=== PATIENT | female | born 1990 | race Native Hawaiian/Other Pacific Islander ===

== ENCOUNTER → 2017-02-16 | Outpatient (CLI) | payer OTHER ==
--- NOTE | 2017-02-16 09:36 | REP ---
RIGHT UPPER QUADRANT ULTRASOUND: Real-time sonographic evaluation of the right upper quadrant performed. Gallbladder demonstrates no evidence of intraluminal sludge of calculi, wall thickening, or pericholecystic fluid. There is no intrahepatic or extrahepatic biliary diltation, common bile duct measuring 5 mm in diameter. Liver and pancreas demonstrate homogenous echotexture with no gross mass. Right kidney demonstrates no hydronephrosis or nephrolithiasis with normal size at 10.3 cm in length. IMPRESSION: Negative right upper quadrant ultrasound. Signed by Toni Smith MD 02/16/2017 01:45 P
[2017-02-18 08:07] LABS: ALT 25 IU/L (0-40); GGT 10 IU/L (0-60); HAPTOGLOBIN 139 mg/dL (34-200); NECROINFLAM SCORE 0.08 (0.00-0.17); NECROINFLAMM GRADE A0-No activity (.); TOTAL BILIRUBIN 0.3 mg/dL (0.0-1.2)
[2017-02-18 10:14] LABS: HEPATITIS C QUANTITATION HCV Not Detected IU/mL (.)
== END ==
LOC: M LAB 08:24 → M RAD 08:24
PROVIDERS: ATTEND Specialist
DX: B18.1 Chronic viral hepatitis B without delta-agent (principal)

== ENCOUNTER → 2017-05-19 | Outpatient (CLI) | payer OTHER ==
[2017-05-19 12:56] LABS: ALBUMIN/GLOBULIN RATIO 1.05 (1.00-1.93); ALKALINE PHOSPHATASE 55 U/L (45-117); ALT/SGPT 24 U/L (12-78); ANION GAP 8 MEQ/L (8-16); AST/SGOT 21 U/L (7-37); BILIRUBIN,TOTAL 0.4 MG/DL (0.2-1.0); BLOOD UREA NITROGEN 8 MG/DL (7-18); CALCIUM LEVEL 8.9 MG/DL (8.5-10.1); CARBON DIOXIDE LEVEL 29 MEQ/L (21-32); CHLORIDE LEVEL 102 MEQ/L (98-107); CREATININE FOR GFR 0.71 MG/DL (0.55-1.02); GLOMERULAR FILTRATION RATE > 60.0 (>60); GLUCOSE, FASTING 84 MG/DL (70-105); SODIUM LEVEL 139 MEQ/L (136-145); TOTAL PROTEIN 7.8 GM/DL (6.4-8.2)
== END ==
LOC: M LAB 11:20
PROVIDERS: ATTEND Specialist
DX: B18.1 Chronic viral hepatitis B without delta-agent (principal)

== ENCOUNTER → 2017-11-08 | Outpatient (CLI) | payer OTHER ==
[2017-11-08 13:36] LABS: HEMATOCRIT 36.8 % (36.0-47.0); MEAN CORPUSCULAR HEMOGLOBIN 29.9 pg (27.0-33.0); MEAN CORPUSCULAR HGB CONC 32.6 g/dl (32.0-36.5); MEAN CORPUSCULAR VOLUME 91.5 fl (80.0-96.0); PLATELET COUNT, AUTOMATED 336 10^3/uL (150-450); RED BLOOD COUNT 4.02 10^6/uL (4.00-5.40); WHITE BLOOD COUNT 4.9 10^3/uL (4.0-10.0)
[2017-11-08 13:58] LABS: ALBUMIN 3.6 GM/DL (3.2-5.2); ALBUMIN/GLOBULIN RATIO 1.03 (1.00-1.93); ALKALINE PHOSPHATASE 64 U/L (45-117); ALT/SGPT 40 U/L (12-78); ANION GAP 6 MEQ/L (8-16); AST/SGOT 32 U/L (7-37); BILIRUBIN,TOTAL 0.2 MG/DL (0.2-1.0); BLOOD UREA NITROGEN 9 MG/DL (7-18); CALCIUM LEVEL 8.6 MG/DL (8.5-10.1); CARBON DIOXIDE LEVEL 28 MEQ/L (21-32); CHLORIDE LEVEL 106 MEQ/L (98-107); CREATININE FOR GFR 0.75 MG/DL (0.55-1.30); GLOMERULAR FILTRATION RATE > 60.0 (>60); GLUCOSE, FASTING 77 MG/DL (70-100); POTASSIUM SERUM 4.2 MEQ/L (3.5-5.1); SODIUM LEVEL 140 MEQ/L (136-145); TOTAL PROTEIN 7.1 GM/DL (6.4-8.2)
[2017-11-10 00:06] LABS: HEPATITIS BE ANTIBODY Negative (Negative)
[2017-11-10 00:06] LABS: HEPATITIS BE ANTIGEN Positive (Negative)
[2017-11-10 14:16] LABS: HBV 3030 IU/mL (.); log10 HBV IU/mL 3.481 (.)
== END ==
LOC: M LAB 12:29
DX: B18.1 Chronic viral hepatitis B without delta-agent (principal)
CPT/HCPCS: 80053

== ENCOUNTER 2017-12-27 21:28 | Emergency (ER) | payer OTHER ==
[2017-12-27 23:04] LABS: CONTROL LINE UCG INT CTR LINE PRESENT; URINE PREG TEST NEGATIVE (NEGATIVE)
[2017-12-27 23:09] LABS: KETONE, URINE AUTO RFX TRACE mg/dL (NEGATIVE); LEUKOCYTE ESTERASE UR AUTO RFX NEGATIVE (NEGATIVE); MUCUS, URINE RFX LARGE (NEGATIVE); NITRITE, URINE AUTO RFX NEGATIVE (NEGATIVE); RBC, URINE AUTO RFX 12 /HPF (0-3); SPECIFIC GRAVITY UR AUTO RFX 1.031 (1.002-1.035); SQUAM EPITHELIAL CELL UR AURFX 3 /HPF (0-6); WBC, URINE AUTO RFX 3 /HPF (0-3)
[2017-12-27] MEDS: NS 1,000 ML IV (23:15)
[2017-12-27 23:18] LABS: BASO % 0.2 % (0.0-1.0); EOS # 0.1 10^3/uL (0.0-0.50); EOS % 1.3 % (0.0-3.0); HEMATOCRIT 37.6 % (36.0-47.0); HEMOGLOBIN 12.4 g/dl (12.0-15.5); IMMATURE GRANULOCYTE % 0.2 % (0-3.0); LYMPH # 1.2 10^3/uL (1.5-6.5); MONO # 0.7 10^3/uL (0.0-0.8); MONO % 8.2 % (0.0-5.0); NEUTROPHILS # 6.2 10^3/uL (1.8-7.7); NEUTROPHILS % 75.1 % (36.0-66.0); PLATELET COUNT, AUTOMATED 329 10^3/uL (150-450); RED BLOOD COUNT 4.13 10^6/uL (4.00-5.40); RED CELL DISTRIBUTION WIDTH 13.2 % (11.5-14.5); WHITE BLOOD COUNT 8.3 10^3/uL (4.0-10.0)
[2017-12-27 23:35] LABS: CONTROL LINE HCG INT CTR LINE PRESENT; HCG, SERUM QUALITATIVE NEGATIVE (NEGATIVE)
[2017-12-27 23:41] LABS: ALBUMIN 3.5 GM/DL (3.2-5.2); ALKALINE PHOSPHATASE 58 U/L (45-117); ALT/SGPT 23 U/L (12-78); AMYLASE 55 U/L (25-115); ANION GAP 9 MEQ/L (8-16); AST/SGOT 18 U/L (7-37); BILIRUBIN,DIRECT 0.1 MG/DL (0.0-0.2); BILIRUBIN,TOTAL 0.3 MG/DL (0.2-1.0); BLOOD UREA NITROGEN 6 MG/DL (7-18); CALCIUM LEVEL 8.7 MG/DL (8.5-10.1); CARBON DIOXIDE LEVEL 28 MEQ/L (21-32); CHLORIDE LEVEL 105 MEQ/L (98-107); CREATININE FOR GFR 0.74 MG/DL (0.55-1.30); GLOMERULAR FILTRATION RATE > 60.0 (>60); GLUCOSE, FASTING 88 MG/DL (70-100); LIPASE 125 U/L (73-393); POTASSIUM SERUM 3.5 MEQ/L (3.5-5.1); SODIUM LEVEL 142 MEQ/L (136-145); TOTAL PROTEIN 7.4 GM/DL (6.4-8.2)
[2017-12-27] MEDS ORDERED: ISOVUE-370 76% 100ML VIAL (Q9967) As Ordered (23:53)
[2017-12-28] MEDS: ONDANSETRON 4MG/2ML VIAL (J2405) IV
[2017-12-28] MEDS: MORPHINE 2 MG/ML 1ML SYRINGE (J2270) IV
[2017-12-28] MEDS ORDERED: ONDANSETRON 4MG/2ML VIAL (J2405) As Ordered (00:03)
[2017-12-28] MEDS ORDERED: MORPHINE 2 MG/ML 1ML SYRINGE (J2270) As Ordered (00:03)
== END 2017-12-28 00:53 | disposition home or self-care (01) ==
LOC: M ED 21:28
DX: A08.4 Viral intestinal infection, unspecified (principal)
CPT/HCPCS: J2405

== ENCOUNTER → 2018-05-11 | Outpatient (CLI) | payer OTHER ==
[2018-05-11 12:13] LABS: HEMATOCRIT 32.8 % (36.0-47.0); HEMOGLOBIN 11.1 g/dl (12.0-15.5); MEAN CORPUSCULAR HEMOGLOBIN 31.4 pg (27.0-33.0); MEAN CORPUSCULAR HGB CONC 33.8 g/dl (32.0-36.5); MEAN CORPUSCULAR VOLUME 92.7 fl (80.0-96.0); PLATELET COUNT, AUTOMATED 277 10^3/uL (150-450); RED BLOOD COUNT 3.54 10^6/uL (4.00-5.40); RED CELL DISTRIBUTION WIDTH 13.8 % (11.5-14.5); WHITE BLOOD COUNT 7.2 10^3/uL (4.0-10.0)
[2018-05-11 13:48] LABS: ALBUMIN/GLOBULIN RATIO 0.79 (1.00-1.93); ALKALINE PHOSPHATASE 46 U/L (45-117); ALT/SGPT 17 U/L (12-78); ANION GAP 9 MEQ/L (8-16); AST/SGOT 15 U/L (7-37); BILIRUBIN,TOTAL 0.3 MG/DL (0.2-1.0); BLOOD UREA NITROGEN 6 MG/DL (7-18); CALCIUM LEVEL 8.7 MG/DL (8.5-10.1); CARBON DIOXIDE LEVEL 24 MEQ/L (21-32); CHLORIDE LEVEL 106 MEQ/L (98-107); CREATININE FOR GFR 0.52 MG/DL (0.55-1.30); GLOMERULAR FILTRATION RATE > 60.0 (>60); GLUCOSE, FASTING 71 MG/DL (70-100); POTASSIUM SERUM 4.1 MEQ/L (3.5-5.1); SODIUM LEVEL 139 MEQ/L (136-145); TOTAL PROTEIN 6.8 GM/DL (6.4-8.2)
[2018-05-14 00:07] LABS: HBV 1320000 IU/mL (.); log10 HBV IU/mL 6.121 (.)
== END ==
LOC: M LAB 11:44
DX: B18.1 Chronic viral hepatitis B without delta-agent (principal)
CPT/HCPCS: 80053

== ENCOUNTER → 2018-07-06 | Outpatient (CLI) | payer OTHER ==
[~2018-07-06] MED LIST: ZOFR4TAB14 PO
[2018-07-06 11:17] LABS: ALBUMIN 2.9 GM/DL (3.2-5.2); ALT/SGPT 26 U/L (12-78); BILIRUBIN,DIRECT < 0.1 MG/DL (0.0-0.2); BILIRUBIN,TOTAL 0.2 MG/DL (0.2-1.0); TOTAL PROTEIN 6.5 GM/DL (6.4-8.2)
[2018-07-09 00:06] LABS: HBV 16000 IU/mL (.); log10 HBV IU/mL 4.204 (.)
== END ==
LOC: M LAB 10:00
PROVIDERS: ATTEND Specialist
DX: B18.1 Chronic viral hepatitis B without delta-agent (principal)

== ENCOUNTER 2018-07-14 20:23 | Outpatient (CLI) | payer OTHER ==
[~2018-07-14] VITALS: Ht 175.3 cm; Wt 105.8 kg
[2018-07-14 21:33] VITALS: BP 98/62
--- NOTE | 2018-07-14 21:36 | IPNPDOC ---
Text Note Date of Service The patient was seen on 07/14/18. NOTE 27 yo at 29+4 weeks presents to L&D with the complaint of pelvic pressure, especially when walking upstairs or doing strenuous activity. She denies any vaginal bleeding or discharge. She also denies any leakage of fluid or contractions whatsoever. She endorses excellent movement. She has a history of a 35 week delivery but all other pregnancies have resulted in term d eliveries. She is taking weekly 17-OHP. Chaperoned by L&D RN Vitals - VSS, afebrile, normotensive, non tachycardic General - AAOX3, sitting up in bed, NAD Abdomen - gravid uterus. No fundal tenderness. Pelvic - Normal external female genitalia. Speculum inserted into the vagina and the cervix was visualized. No discharge, blood, or fluid in the vault. Cervix normal in appearance and closed. Cervix: cl/thick/high posterior. FHR - BL 140, moderate variability, +10X10 accels, no decels Cat I tracing. Intermittent breaks in tracing while patient moving. Bedside TAUS - Cephalic presenting . ЮЛИЯ 16.8cm. Very active fetus. No signs of labor. Pressure is most exacerbated by movement and exercise; likely pelvic girdle pain. Cervix closed. Reassuring status. Recommended contacting the [facility] to get a maternity support belt in the morning. Patient verbalized understanding. We reviewed strict return precautions. All questions answered. DO DYLAN Romero CHRISTOPHER J. DO Jul 14, 2018 21:36
== END 2018-07-14 21:35 | disposition home or self-care (01) ==
LOC: M LDO 20:23
PROVIDERS: ATTEND Obstetrics & Gynecology
DX: O26.893 Other specified pregnancy related conditions, third trimester (principal); R10.30 Lower abdominal pain, unspecified; Z3A.29 29 weeks gestation of pregnancy
CPT/HCPCS: 76815; G0378; G0463

== ENCOUNTER → 2018-09-03 | Outpatient (CLI) | payer OTHER ==
[2018-09-03 13:48] LABS: ALBUMIN 2.7 GM/DL (3.2-5.2); ALT/SGPT 23 U/L (12-78); BILIRUBIN,TOTAL 0.2 MG/DL (0.2-1.0); BLOOD UREA NITROGEN 7 MG/DL (7-18); CALCIUM LEVEL 8.3 MG/DL (8.5-10.1); CARBON DIOXIDE LEVEL 24 MEQ/L (21-32); CHLORIDE LEVEL 108 MEQ/L (98-107); CREATININE FOR GFR 0.55 MG/DL (0.55-1.30); GLOMERULAR FILTRATION RATE > 60.0 (>60); GLUCOSE, FASTING 78 MG/DL (70-100); POTASSIUM SERUM 3.7 MEQ/L (3.5-5.1); SODIUM LEVEL 140 MEQ/L (136-145); TOTAL PROTEIN 6.2 GM/DL (6.4-8.2)
== END ==
LOC: M LAB 12:34
PROVIDERS: ATTEND Obstetrics & Gynecology
DX: Z11.59 Encounter for screening for other viral diseases (principal)

== ENCOUNTER 2018-09-10 00:16 | Inpatient (IN) | payer OTHER ==
[2018-09-10] VITALS (8 sets, daily range): BP systolic 95–118; BP diastolic 49–65
[~2018-09-10] VITALS: Ht 175.3 cm; Wt 112.4 kg
[2018-09-10] MEDS ORDERED: PENICILLIN G POTASSIUM IV 5 MU in D5W MINI-BAG PLUS 100 ML IV STA ×2 (01:10→01:23)
[2018-09-10] MEDS ORDERED: LACTATED RINGER'S 1000 ML IV STA (01:10)
[2018-09-10] MEDS ORDERED: TENO30TAB PO (01:12)
[2018-09-10] MEDS ORDERED: PRENTAB9 PO (01:12)
[2018-09-10 01:25] LABS: HEMATOCRIT 35.2 % (36.0-47.0); HEMOGLOBIN 11.8 g/dl (12.0-15.5); MEAN CORPUSCULAR HEMOGLOBIN 31.5 pg (27.0-33.0); MEAN CORPUSCULAR HGB CONC 33.5 g/dl (32.0-36.5); MEAN CORPUSCULAR VOLUME 93.9 fl (80.0-96.0); PLATELET COUNT, AUTOMATED 283 10^3/uL (150-450); RED BLOOD COUNT 3.75 10^6/uL (4.00-5.40); WHITE BLOOD COUNT 10.3 10^3/uL (4.0-10.0)
[2018-09-10] MEDS: LR 1,000 ML IV SCH ×2 (01:28→09:10)
[2018-09-10] MEDS ORDERED: OXYTOCIN 30 UNITS IN 0.9% NaCl 500ML IV BAG (J2590) As Ordered ONE (01:34)
[2018-09-10] MEDS ORDERED: OXYTOCIN DRIP 30 UNITS in APPROPRIATE DILUENT 1 EA IV SCH (02:40)
[2018-09-10] MEDS ORDERED: RHOGAM 300 MCG (1500 IU) INJ (J2790) IM SCH (02:45)
[2018-09-10] MEDS ORDERED: DIBUCAINE 1% OINTMENT 30GM TOP PRN (02:45)
[2018-09-10] MEDS ORDERED: DOCUSATE SODIUM 100 MG CAP PO PRN (02:45)
[2018-09-10] MEDS ORDERED: MEASLES,MUMPS,RUBELLA VACCINE INJ (MMR-II) (90707) SC SCH (02:45)
[2018-09-10] MEDS ORDERED: miSOPROStol 200 MCG TAB (S0191) PR ONE (02:45)
[2018-09-10] MEDS ORDERED: ACETAMINOPHEN 500 MG TAB PO PRN (02:45)
--- NOTE | 2018-09-10 02:47 | DNPDOC ---
[facility] Delivery Note Delivery Note DATE OF DELIVERY: 10 September 2018 PREDELIVERY DIAGNOSIS: 37w6d gestation and labor. POST DELIVERY DIAGNOSIS: Delivered. PROCEDURE: Vaginal after SUPERVISING LAW ENFORCEMENT ANALYST: Dr. Nenita Bell MD ANESTHESIA: none ESTIMATED BLOOD LOSS: 300 mL. FINDINGS: 7 pound 13 ounce (3550g) male , Score 9/9 DELIVERY SUMMARY: Coleman is a 27yo [id number] s/p uncomplicated at 37w6d after presenting in active labor, delivering at 02:16 on 09/10/18. She presented at 7cm and quickly progressed to C/C/0 at which point she began pushing. SROM occurred, clear fluid, with pushing. Great maternal effort, head delivered OA, restituted KACY. Left anterior shoulder delivered easily followed by posterior shoulder and corpus. vigorous with spontaneous cry, placed on maternal abdomen. Nose and mouth were suctioned with bulb suction, apgars 9/9. Cord clamped x2 after 2 minutes and cut by FOB. Uterine massage performed, traction on the umbilical cord, placenta delivered spontaneously and intact with 3 vessel centrally inserted cord. IV pitocin was given per protocol, bimanual massage performed and uterus then firm at u-1cm. Inspection of perineum and vagina revealed no laceration. 800mcg cytotec placed rectally for prophylaxis. Hemostasis was noted. Mom and infant were doing well when I left the room. MD Arabella Topete Katrina D MD Sep 10, 2018 02:46
[2018-09-10] MEDS: IBUPROFEN 800 MG TAB PO PRN ×2 (02:52→19:47)
--- NOTE | 2018-09-10 03:16 | HPEPDOC ---
Obstetrical History & Physical General Date of Admission Sep 10, 2018 at 00:55 History of Present Illness Coleman is a 27yo with SIUP at 37w6d by lmp c/w 9wk u/s who presents with r egular, painful ctx that have been getting more painful and closer together over the last few hours. No LOF, no vaginal bleeding, feels good movement. 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 own currently taking tenofovir (recent viral load on 09/03 was 5,140,000 IU/mL or log 10 = 6.71 and LFTs were wnl), history of prior section in 2012 for NRFHT followed by 2 successful VBACs, 2014 had PTL/PTD at 35wk so received Frankewing this , Class 1 obesity (starting BMI 30.1), excessive weight gain (35lb), anemia Height (inches): 69 Pre- weight (lbs.): 209 Admission Weight (lbs.): 244 Change in Weight (lbs.): 35 Past Medical History Past Obstetrical History : Past Obstetrical History: Multigravida (2012 PLTCS at 39wk for NRFHT 6lb, 2013 35wk 35wk 2wk23wt, 2017 37wk 6lb) Past Medical History Medical History Hepatitis B that the patient contracted during her own currently taking tenofovir (recent viral load on 09/03 was 5,140,000 IU/mL or log 10 = 6.71 and LFTs were wnl), Class 1 obesity (starting BMI 30.1), excessive weight gain (35lb) Surgical History: section, [place] teeth Family History Significant Family History: Heart disease Social History Marital Status: Family situation: Spouse/partner home Psychosocial History: No pertinent psych hx * Smoker: non-smoker Alcohol: Denies Drugs: denies Imunizations Tdap status: current Influenza Status: declined Allergies Coded Allergies: No Known Allergies (Unverified , 09/10/18) Medications Scheduled No.137/Iron/Folic Acd ( Vitamin Tablet) 1 Each Tablet, 1 TAB PO DAILY Tenofovir Disoproxil Fumarate (Viread) 300 Mg Tablet, 300 MG PO DAILY Physical Examination Physical Examination GENERAL: Alert and oriented times three. ABDOMEN: Gravid and non-tender to touch. FETUS: Is vertex (VTX) by sterile vaginal examination (SVE) EXTREMITIES: trace pedal edema Laboratory Data 24H LABS Laboratory Tests 2 09/10/18 00:59: Serology Scanned Report Hepatitis B Testing 09/10/18 01:14: CBC/BMP Pertinent Laboratoy Data Blood Type: B+ RBC Antibody Screen: Negative HIV: Negative Hepatitis B: Positive Hepatitis C: Unknown Rapid Plasma Reagin: Nonreactive Rubella: Immune Varicella: Immune Chlamydia/Gonorrhea: Negative Group B Streptococcus: Negative Glucose Tolerance Test: 96 Anatomy Ultrasound Ultrasound Date: May 09, 2018 Placenta Location: Posterior Normal Anatomy: Yes Placenta Previa: No Steroid Therapy Steroid Therapy: No Vaginal Examination Dilation: 8 cm Effacement: 90% Station: -1, 0 Cervical Consistency: Soft Cervical Position: Middle Presentation: Cephalic presentation Assessment Heart Rate (FHR): 120 Variability: Moderate Accelerations: Positive Decelerations: None Tocometer Contractions: Yes Frequency: regular, every 1-3 min. Duration: greater than 60 seconds Strength: palpated as strong Assessment/Plan Assessment Coleman is a 27yo with SIUP at 37w6d by lmp c/w 9wk u/s admitted to L&D for active labor, SCE 8/-1 with regular painful ctx q1-3min. Cephalic by SCE. Vitals wnl, benign exam. Cat I FHRT. PMhx and PNC significant for: Hepatitis B that the patient contracted during her own currently taking tenofovir (recent viral load on 09/03 was 5,140,000 IU/mL or log 10 = 6.71 and LFTs were wnl), history of prior section in 2012 for NRFHT followed by 2 successful VBACs, 2014 had PTL/PTD at 35wk so received Frankewing this , Class 1 obesity (starting BMI 30.1), excessive weight gain (35lb), anemia Plan Admit and orient. Product Demonstrator and consent. Diet: clear liquids Group B Streptococcus (GBS) negative (presumed positive originally, so received 1 dose of PCN, but lab result was found and confirmed negative) Labs and intravenous (IV) per unit protocol. Lactated Ringers (LR): Bolus 1000 mL, then at 125 mL/hr. Anticipate normal spontaneous delivery () C-S as appropriate Candidate for epidural if desired MD Arabella Topete Katrina D MD Sep 10, 2018 01:41
[2018-09-10] MEDS ORDERED: PENICILLIN G POTASSIUM IV 2.5 MU in APPROPRIATE DILUENT 1 EA IV SCH ×2 (05:00→05:15)
[2018-09-10] MEDS: PRENATAL VITAMINS CHEWABLE TABLET PO SCH (08:08)
[2018-09-11 06:00] VITALS: BP 108/55
--- NOTE | 2018-09-11 08:54 | IPNPDOC ---
Progress Note Date of Service: Sep 11, 2018 Day#: 1 Progress Note PPD 1 SUBJECT: Coleman is a 27yo [id number] s/p uncomplicated at 37w6d after presenting in active labor, delivering at 02:16 on 09/10/18, having no laceration, and doing well day #1. She has been ambulating, voiding spontaneously without issue and tolerating regular diet. Bottle feeding without issue. Reports lochia is like a normal period. No f/c/n/v/CP/SOB. OBJECTIVE: VITAL SIGNS: Within normal limits, normotensive, afebrile. Alert and oriented times three. Abdomen: Fundus firm at U-2. Soft, NTTP. Extremities: no pain with palpation of calves ASSESSMENT: Coleman is a 27yo [id number] s/p uncomplicated at 37w6d after presenting in active labor, delivering at 02:16 on 09/10/18, having no lace ration, and doing well day #1. Vitals within normal limits, afebrile, hemodynamically stable with no evidence of infection. PLAN: 1. Discharge to home today. 2. Tylenol and Motrin for pain 3. Encourage ambulation. 4. Vasectomy already completed for contraception 5. Routine PP visit in 6 weeks in clinic. 6. Discussed return precautions at length. Dr. Nenita Bell MD VS, I&O, 24H, Fishbone Vital Signs/I&O Vital Signs Date Time Temp Pulse Resp B/P (MAP) Pulse Ox O2 Delivery O2 Flow Rate FiO2 09/11/18 06:00 97.3 78 16 108/55 (72) 97 Nenita Bell MD Sep 11, 2018 08:54
[2018-09-11] MEDS: PRENATAL VITAMINS CHEWABLE TABLET PO SCH (10:57)
[2018-09-11] MEDS: IBUPROFEN 800 MG TAB PO PRN (10:59)
[2018-09-11] MEDS ORDERED: MAPA500T2 PO (11:23)
[2018-09-11] MEDS ORDERED: IBUP-1114 PO (11:23)
== END 2018-09-11 13:25 | disposition home or self-care (01) | DRG 806 ==
LOC: M LDO 00:16 → M LDI 00:55 → M OBS 05:20
PROVIDERS: ADMIT Obstetrics & Gynecology; ATTEND Obstetrics & Gynecology
PROC: 10E0XZZ Delivery of Products of Conception, External Approach (ICD-10-PCS; principal; 2018-09-10)
DX: O98.42 Viral hepatitis complicating childbirth (principal); Z37.0 Single live birth; B19.10 Unspecified viral hepatitis B without hepatic coma; O34.211 Maternal care for low transverse scar from previous cesarean delivery; O99.214 Obesity complicating childbirth; E66.9 Obesity, unspecified; Z3A.37 37 weeks gestation of pregnancy